=== PATIENT | female | born 1940 | race Caucasian/White ===

== ENCOUNTER 2023-11-13 20:02 | Inpatient (IN) | payer OTHER, MEDICAID ==
[~2023-11-13] VITALS: Ht 152.4 cm; Wt 43.1 kg
[2023-11-13 20:35] VITALS: BP_SYST 117; PULSE 92; RESP 18; TEMP 98.3; O2SAT 98
[2023-11-13 21:18] LABS: BASOPHILS % (AUTO) 0.6 % (0.0-2.0); EOSINOPHILS # (AUTO) 0.4 K/uL (0.0-0.4); EOSINOPHILS % (AUTO) 6.4 % (0.0-4.0); HEMATOCRIT 37.3 % (36-48); HEMOGLOBIN 12.7 g/dL (12.0-16.0); LYMPHOCYTES # (AUTO) 2.4 K/uL (1.0-5.5); LYMPHOCYTES % (AUTO) 34.4 % (20.5-51.5); MEAN CORPUSCULAR HEMOGLOBIN 32 pg (27-31); MEAN CORPUSCULAR HGB CONC 34 % (32-36); MEAN CORPUSCULAR VOLUME 94 fL (79.0-98.0); MONOCYTES # (AUTO) 0.6 K/uL (0.0-1.0); MONOCYTES % (AUTO) 8.5 % (1.7-9.3); NEUTROPHILS # (AUTO) 3.4 K/uL (1.8-7.7); NEUTROPHILS % (AUTO) 50.1 % (40.0-70.0); PLATELET COUNT (AUTO) 213 K/uL (130-430); RED BLOOD CELL COUNT(AUTO) 3.98 MIL/uL (4.2-6.2); RED CELL DISTRIBUTION WIDTH 12.4 % (9.0-15.0); WHITE BLOOD COUNT (AUTO) 6.8 K/uL (4.8-10.8)
[2023-11-13 21:35] LABS: INR 0.9 (0.8-1.2); PROTHROMBIN TIME 9.7 SECS (9.5-12.5)
[2023-11-13 21:49] LABS: ALANINE AMINOTRANSFERASE 12 U/L (12-78); ALBUMIN 3.4 g/dL (3.4-4.8); ANION GAP 9 (5-15); ASPARTATE AMINOTRANSFERASE 15 U/L (10-37); BILIRUBIN,DIRECT 0.1 mg/dL (0.0-0.3); CALCIUM 8.2 mg/dL (8.4-11.0); CARBON DIOXIDE 25 mmol/L (23-29); CHLORIDE 104 mmol/L (98-107); CREATINE KINASE, TOTAL 62 U/L (26-192); CREATININE 0.96 mg/dL (0.55-1.30); GLUCOSE 99 mg/dL (74-106); POTASSIUM 4.2 mmol/L (3.5-5.1); SODIUM SERUM 138 mmol/L (136-145); TOTAL BILIRUBIN 0.6 mg/dL (0.0-1.0); TOTAL PROTEIN, SERUM 7.2 g/dL (6.4-8.3); UREA NITROGEN, BLOOD 31 mg/dL (8-21)
[2023-11-13] MEDS ORDERED: DONE10TA44 PO (23:36)
[2023-11-13] MEDS ORDERED: DOCU-144 PO (23:36)
[2023-11-13] MEDS ORDERED: ASPI-1393 PO (23:36)
[2023-11-13] MEDS ORDERED: CALC-827 PO (23:36)
[2023-11-13] MEDS ORDERED: MELA1TAB29 PO (23:36)
[2023-11-13] MEDS ORDERED: AMLO2.5T50 PO (23:36)
[2023-11-13] MEDS ORDERED: MEGE400O5 PO (23:36)
[2023-11-13] MEDS ORDERED: DIVA125C2 PO (23:36)
[2023-11-13] MEDS ORDERED: MEMA10TA56 PO (23:36)
[2023-11-14] MEDS: D5/0.45 NS 1,000 ML IV SCH ×2 (01:07→11:50)
[2023-11-14 01:27] LABS: BILIRUBIN,URINE NEGATIVE (NEGATIVE); BLOOD, URINE NEGATIVE (NEGATIVE); CLARITY/URINE CLEAR (CLEAR); COLOR,URINE YELLOW (YELLOW); GLUCOSE,URINE NEGATIVE (NEGATIVE); KETONES,URINE 1+ (NEGATIVE); LEUKOCYTE ESTERASE ,URINE NEGATIVE (NEGATIVE); NITRITE, URINE POSITIVE (NEGATIVE); PROTEIN URINE NEGATIVE (NEGATIVE); UROBILINOGEN,URINE 0.2 (0.2-1.0)
[2023-11-14 01:39] LABS: RBC,URINE 0-3 /HPF (0-3); WBC,URINE 0-3 /HPF (0-3)
[2023-11-14 01:40] LABS: BACTERIA,URINE MANY /HPF (None Seen)
[2023-11-14] MEDS: cefTRIAXone 1 GM in D5W 50 ML IV SCH (09:56)
[2023-11-14 10:00] VITALS: O2SAT 99
[2023-11-14 10:44] VITALS: BP_SYST 144; PULSE 83; RESP 16; TEMP 98.7; O2SAT 99
[2023-11-14 15:02] VITALS: BP_SYST 125; PULSE 80; RESP 16; TEMP 97.6; O2SAT 96
[2023-11-14 16:00] VITALS: BP_SYST 125; PULSE 80; RESP 16; TEMP 97.6; O2SAT 96
[2023-11-14 20:00] VITALS: BP_SYST 115; BP_SYST 127; PULSE 71; PULSE 88; RESP 18; TEMP 98.9; TEMP 99.6; O2SAT 94; O2SAT 96
[2023-11-14] MEDS ORDERED: PYRIDOXINE HCL PO SCH (21:00)
[2023-11-14] MEDS ORDERED: MELATONIN PO SCH (21:00)
[2023-11-14] MEDS: ENOXAPARIN SODIUM 30 MG/0.3 ML SYRINGE SUBCUT SCH (21:05)
[2023-11-14] MEDS: DIVALPROEX SODIUM 125 MG CAP.(DEPAKOTE SPRINKLE) PO SCH (21:05)
[2023-11-14] MEDS: PYRIDOXINE HCL 50 MG TABLET PO SCH (21:05)
[2023-11-14] MEDS: MEMANTINE HCL 5 MG TABLET PO SCH (21:05)
[2023-11-14] MEDS: MELATONIN 3 MG TABLET PO SCH (21:09)
[2023-11-15 01:43] VITALS: BP_SYST 125; PULSE 64; RESP 20; TEMP 99.2; O2SAT 98
[2023-11-15 02:53] VITALS: BP_SYST 127; PULSE 71; RESP 18; TEMP 99.6; O2SAT 94
[2023-11-15] MEDS: D5/0.45 NS 1,000 ML IV SCH ×2 (05:57→14:30)
[2023-11-15 08:53] VITALS: BP_SYST 145; PULSE 73; RESP 16; TEMP 97.6; O2SAT 97
[2023-11-15 11:11] VITALS: BP_SYST 125; PULSE 94; RESP 16; TEMP 97; O2SAT 97
[2023-11-15] MEDS: CALCIUM CARBONATE/VITAMIN D3 1 TAB TABLET PO SCH (11:16)
[2023-11-15] MEDS: DONEPEZIL HCL 5 MG TABLET (ARICEPT) PO SCH (11:16)
[2023-11-15] MEDS: cefTRIAXone 1 GM in D5W 50 ML IV SCH (11:16)
[2023-11-15] MEDS: MEGESTROL ACETATE 400 MG/10 ML UDC PO SCH (11:16)
[2023-11-15] MEDS: DIVALPROEX SODIUM 125 MG CAP.(DEPAKOTE SPRINKLE) PO SCH ×3 (11:16→21:37)
[2023-11-15] MEDS: MEMANTINE HCL 5 MG TABLET PO SCH ×2 (11:17→21:37)
[2023-11-15] MEDS: DOCUSATE SODIUM 100 MG CAPSULE PO SCH (11:17)
[2023-11-15 15:00] VITALS: BP_SYST 123; PULSE 78; RESP 16; TEMP 96.7; O2SAT 96
[2023-11-15 20:00] VITALS: BP_SYST 150; PULSE 97; RESP 16; TEMP 98.5; O2SAT 98
[2023-11-15] MEDS: PYRIDOXINE HCL 50 MG TABLET PO SCH (21:36)
[2023-11-15] MEDS: MELATONIN 3 MG TABLET PO SCH (21:38)
[2023-11-15] MEDS: ENOXAPARIN SODIUM 30 MG/0.3 ML SYRINGE SUBCUT SCH (21:39)
[2023-11-16] VITALS: BP_SYST 123; PULSE 64; RESP 16; TEMP 98.1; O2SAT 97
[2023-11-16] MEDS: D5/0.45 NS 1,000 ML IV SCH (06:09)
[2023-11-16 06:49] LABS: BASOPHILS # (AUTO) 0.1 K/uL (0.0-0.2); BASOPHILS % (AUTO) 1.3 % (0.0-2.0); EOSINOPHILS # (AUTO) 0.7 K/uL (0.0-0.4); EOSINOPHILS % (AUTO) 8.4 % (0.0-4.0); HEMATOCRIT 36.7 % (36-48); HEMOGLOBIN 12.4 g/dL (12.0-16.0); LYMPHOCYTES # (AUTO) 2.2 K/uL (1.0-5.5); LYMPHOCYTES % (AUTO) 27.6 % (20.5-51.5); MEAN CORPUSCULAR HEMOGLOBIN 32 pg (27-31); MEAN CORPUSCULAR HGB CONC 34 % (32-36); MEAN CORPUSCULAR VOLUME 94 fL (79.0-98.0); MONOCYTES # (AUTO) 0.6 K/uL (0.0-1.0); MONOCYTES % (AUTO) 7.2 % (1.7-9.3); NEUTROPHILS # (AUTO) 4.4 K/uL (1.8-7.7); NEUTROPHILS % (AUTO) 55.5 % (40.0-70.0); PLATELET COUNT (AUTO) 192 K/uL (130-430); RED CELL DISTRIBUTION WIDTH 12.3 % (9.0-15.0); WHITE BLOOD COUNT (AUTO) 7.9 K/uL (4.8-10.8)
[2023-11-16 07:20] LABS: ANION GAP 7 (5-15); CALCIUM 8.6 mg/dL (8.4-11.0); CARBON DIOXIDE 26 mmol/L (23-29); CHLORIDE 107 mmol/L (98-107); CREATININE 0.78 mg/dL (0.55-1.30); GLUCOSE 83 mg/dL (74-106); SODIUM SERUM 140 mmol/L (136-145); UREA NITROGEN, BLOOD 19 mg/dL (8-21)
[2023-11-16 08:03] VITALS: BP_SYST 137; PULSE 72; RESP 18; TEMP 100; O2SAT 96
[2023-11-16] MEDS: DONEPEZIL HCL 5 MG TABLET (ARICEPT) PO SCH (09:09)
[2023-11-16] MEDS: CALCIUM CARBONATE/VITAMIN D3 1 TAB TABLET PO SCH (09:09)
[2023-11-16] MEDS: MEMANTINE HCL 5 MG TABLET PO SCH ×2 (09:09→21:15)
[2023-11-16] MEDS: MEGESTROL ACETATE 400 MG/10 ML UDC PO SCH (09:10)
[2023-11-16] MEDS: DOCUSATE SODIUM 100 MG CAPSULE PO SCH (09:10)
[2023-11-16] MEDS: DIVALPROEX SODIUM 125 MG CAP.(DEPAKOTE SPRINKLE) PO SCH ×3 (09:10→21:12)
[2023-11-16 09:25] VITALS: O2SAT 96
[2023-11-16 11:38] VITALS: BP_SYST 128; PULSE 63; RESP 17; TEMP 97; O2SAT 98
[2023-11-16] MEDS: cefTRIAXone 1 GM in D5W 50 ML IV SCH (12:31)
[2023-11-16 16:03] VITALS: BP_SYST 126; PULSE 66; RESP 17; TEMP 97.4; O2SAT 97
[2023-11-16 20:00] VITALS: BP_SYST 122; PULSE 68; RESP 18; TEMP 98.2; O2SAT 97
[2023-11-16] MEDS: PYRIDOXINE HCL 50 MG TABLET PO SCH (21:12)
[2023-11-16] MEDS: MELATONIN 3 MG TABLET PO SCH (21:15)
[2023-11-16] MEDS: ENOXAPARIN SODIUM 30 MG/0.3 ML SYRINGE SUBCUT SCH (21:15)
[2023-11-17 00:08] VITALS: BP_SYST 130; PULSE 86; RESP 18; TEMP 98.2; O2SAT 98
[2023-11-17 07:36] VITALS: BP_SYST 138; PULSE 60; RESP 16; TEMP 99.1; O2SAT 96
[2023-11-17] MEDS: cefTRIAXone 1 GM in D5W 50 ML IV SCH (08:48)
[2023-11-17] MEDS: DOCUSATE SODIUM 100 MG CAPSULE PO SCH (08:49)
[2023-11-17] MEDS: DIVALPROEX SODIUM 125 MG CAP.(DEPAKOTE SPRINKLE) PO SCH ×3 (08:49→21:15)
[2023-11-17] MEDS: MEGESTROL ACETATE 400 MG/10 ML UDC PO SCH (08:49)
[2023-11-17] MEDS: MEMANTINE HCL 5 MG TABLET PO SCH ×2 (08:49→21:15)
[2023-11-17] MEDS: DONEPEZIL HCL 5 MG TABLET (ARICEPT) PO SCH (08:50)
[2023-11-17] MEDS: CALCIUM CARBONATE/VITAMIN D3 1 TAB TABLET PO SCH (08:50)
[2023-11-17 09:19] VITALS: O2SAT 98
[2023-11-17 11:02] VITALS: BP_SYST 115; PULSE 67; RESP 16; TEMP 97; O2SAT 93
[2023-11-17 15:01] VITALS: BP_SYST 114; PULSE 72; RESP 16; TEMP 98.3; O2SAT 94
[2023-11-17] MEDS ORDERED: CEPHALEXIN 250 MG/5 ML, 100 ML BTL PO SCH (15:15)
[2023-11-17 20:00] VITALS: BP_SYST 135; PULSE 92; RESP 18; TEMP 97.7; O2SAT 98
[2023-11-17] MEDS: PYRIDOXINE HCL 50 MG TABLET PO SCH (21:15)
[2023-11-17] MEDS: ENOXAPARIN SODIUM 30 MG/0.3 ML SYRINGE SUBCUT SCH (21:16)
[2023-11-17] MEDS: MELATONIN 3 MG TABLET PO SCH (21:18)
[2023-11-18] VITALS: BP_SYST 129; PULSE 71; RESP 16; TEMP 97.8; O2SAT 96
[2023-11-18 08:00] VITALS: BP_SYST 141; PULSE 99; RESP 16; TEMP 97.8; O2SAT 97
[2023-11-18] MEDS: cefTRIAXone 1 GM in D5W 50 ML IV SCH (08:38)
[2023-11-18] MEDS: MEMANTINE HCL 5 MG TABLET PO SCH (08:38)
[2023-11-18] MEDS: MEGESTROL ACETATE 400 MG/10 ML UDC PO SCH (08:38)
[2023-11-18] MEDS: DONEPEZIL HCL 5 MG TABLET (ARICEPT) PO SCH (08:38)
[2023-11-18] MEDS: DIVALPROEX SODIUM 125 MG CAP.(DEPAKOTE SPRINKLE) PO SCH ×2 (08:38→15:30)
[2023-11-18] MEDS: CALCIUM CARBONATE/VITAMIN D3 1 TAB TABLET PO SCH (08:39)
[2023-11-18] MEDS: DOCUSATE SODIUM 100 MG CAPSULE PO SCH (08:39)
[2023-11-18 11:27] VITALS: BP_SYST 104; PULSE 71; RESP 16; TEMP 97.6; O2SAT 96
[2023-11-18 15:02] VITALS: BP_SYST 114; PULSE 76; RESP 16; TEMP 98.6; O2SAT 96
[2023-11-18 17:01] VITALS: BP_SYST 137; PULSE 95; RESP 18; TEMP 98.1; O2SAT 97
== END 2023-11-18 18:45 | DRG 640 ==
LOC: SED 20:02 → SMU 22:16
PROVIDERS: ADMIT Family Medicine; ATTEND Family Medicine
DX: E86.0 Dehydration (principal); G93.41 Metabolic encephalopathy; N39.0 Urinary tract infection, site not specified; N17.9 Acute kidney failure, unspecified; I10 Essential (primary) hypertension; F03.90 Unspecified dementia, unspecified severity, without behavioral disturbance, psychotic disturbance, mood disturbance, and anxiety; M17.0 Bilateral primary osteoarthritis of knee; M81.0 Age-related osteoporosis without current pathological fracture; R29.6 Repeated falls; B96.20 Unspecified Escherichia coli [E. coli] as the cause of diseases classified elsewhere; S00.81XA Abrasion of other part of head, initial encounter; W18.39XA Other fall on same level, initial encounter; Y93.89 Activity, other specified; Z79.899 Other long term (current) drug therapy; Y92.89 Other specified places as the place of occurrence of the external cause; Y99.8 Other external cause status
CPT/HCPCS: 36415; 70450-TC; 71045; 76376; 80048; 80076; 81000; 81001; 81015; 82550; 83605; 84484; 85025; 85610-TC; 85730-TC; 87086; 93005; 97530-GP; 99285; J0696; J1650; J7060